=== PATIENT | male | born 1950 | race African-American/Black ===

== ENCOUNTER 2019-03-03 11:54 | Outpatient (CLI) | payer MEDICARE ==
[2019-03-03 12:43] LABS: Bilirubin Negative (Negative); Blood, Urine Trace (Negative); Clarity Clear (Clear); Glucose, Urine (Dipstick) Negative (Negative); Leukocyte Negative (Negative); Nitrite Negative (Negative); Protein, Urine (Dipstick) Negative (Neg-Trace)
--- NOTE | 2019-03-03 12:56 | RAD ---
XR Lumbar Spine 2 Or 3 View: 03/03/2019 12:38 PM CLINICAL INDICATION: Low back pain COMPARISON: None. FINDINGS: Fracture:No fracture. Arthropathy:Moderate multilevel degenerative change with endplate sclerosis, osteophytosis, disc spac e narrowing and facet osteoarthritis. Incidental findings:None of significance. IMPRESSION: 1. No acute osseous abnormality. 2. Moderate multilevel degenerative change of lumbar spine.
--- NOTE | 2019-03-03 12:57 | RAD ---
Exam: XR Hip Lt 2-3 View HISTORY: Pelvic pain. COMPARISON: None FINDINGS: There is minimal left hip osteoarthritis. No acute fracture, dislocation, or other acute osseous abnormality is identified. Phleboliths overlie the left hemipelvis. IMPRESSION: No acute osseous abnormality is identified.
--- NOTE | 2019-03-03 12:59 | RAD ---
Exam: XR Hip Rt 2-3 View HISTORY: Pelvic pain. COMPARISON: None FINDINGS: Minimal right hip osteoarthritis is present. No acute fracture, dislocation, or other acute osseous abnormality is identified. Degenerative changes are seen in the lower lumbar spine. Phleboliths overlie the pelvis. IMPRESSION: No acute osseous abnormality is identified.
[2019-03-03 13:10] LABS: Bacteria/HPF None Seen HPF (None Seen); RBC/HPF 0-3 HPF (0-3); Squamous Epithelial 0-3 HPF (0-3); WBC/HPF 0-3 HPF (0-3)
[2019-03-03 13:15] LABS: ALT (SGPT) 23 U/L (8-55); AST (SGOT) 20 U/L (5-34); Albumin 4.3 g/dL (3.4-4.8); Alkaline Phosphatase 67 U/L (40-110); Anion Gap 14 mmol/L (10-20); BUN (Urea Nitrogen) 17 mg/dL (8.4-25.7); Bilirubin, Total 0.7 mg/dL (0.2-1.2); Calc. Creatinine Clearance 0 mL/min (70-130); Calcium 9.5 mg/dL (7.8-10.44); Carbon Dioxide 29 mmol/L (23-31); Chloride 107 mmol/L (98-107); Estimated GFR-MDRD 65; Globulin 2.7 g/dL (2.4-3.5); Glucose 77 mg/dL (80-115); Potassium 4.5 mmol/L (3.5-5.1); Sodium 145 mmol/L (136-145)
== END 2019-03-03 11:55 | disposition home or self-care (01) ==
LOC: MADLABBHPM 11:54
PROVIDERS: ATTEND Family Medicine
DX: M54.5 Low back pain (principal); R10.2 Pelvic and perineal pain; R35.1 Nocturia
CPT/HCPCS: 72100; 80053; 81001; 84153

== ENCOUNTER 2019-11-13 12:12 | Outpatient (CLI) | payer MEDICARE ==
[2019-11-13 16:56] LABS: Hemoglobin A1c 6.1 % (4.0-6.0)
[2019-11-13 16:58] LABS: #Eosinphils 0.1 thou/uL (0.0-0.7); #Lymphocytes 2.2 thou/uL (1.20-3.40); #Monocytes 0.7 thou/uL (0.11-0.59); #Neutrophils 4.6 thou/uL (1.40-6.50); %Basophils 0.3 % (0.0-1.0); %Eosinophils 1.2 % (0.0-10.0); %Lymphocytes 29.3 % (21.0-51.0); %Monocytes 9.1 % (0.0-10.0); %Neutrophils 60.2 % (42.0-75.0); Mean Corpuscular Volume 90.5 fL (78.0-98.0); Mean Platelet Volume 8.2 fL (7.4-10.4); Platelet Count 250 thou/uL (130-400); RBC Distribution Width 12.6 % (11.5-14.5); Red Blood Cell (RBC) Count 4.83 mill/uL (4.70-6.10); White Blood Cell (WBC) Count 7.6 thou/uL (4.8-10.8)
[2019-11-13 17:19] LABS: ALT (SGPT) 28 U/L (8-55); AST (SGOT) 18 U/L (5-34); Alkaline Phosphatase 64 U/L (40-110); Anion Gap 12 mmol/L (10-20); BUN (Urea Nitrogen) 11 mg/dL (8.4-25.7); Bilirubin, Total 0.4 mg/dL (0.2-1.2); Calc. Creatinine Clearance 0 mL/min (70-130); Carbon Dioxide 31 mmol/L (23-31); Chloride 105 mmol/L (98-107); Estimated GFR-MDRD 86; Globulin 2.3 g/dL (2.4-3.5); Glucose 91 mg/dL (80-115); Potassium 3.8 mmol/L (3.5-5.1); Protein, Total 6.3 g/dL (5.8-8.1); Sodium 144 mmol/L (136-145)
== END 2019-11-13 12:13 | disposition home or self-care (01) ==
LOC: MADEKG 12:12
PROVIDERS: ATTEND Family Medicine
DX: R42 Dizziness and giddiness (principal)
CPT/HCPCS: 36415; 80053; 83036; 84443; 85025; 93005; 93010